=== PATIENT | female | born 1995 | race Caucasian/White ===

== ENCOUNTER 2019-09-10 00:03 | Emergency (ER) | payer BC ==
--- NOTE | 2019-09-10 00:25 | ED ---
HPI Cardiac - HPI Summary HPI Summary: Patient is a 24 y/o F w/ Hx of spontaneous pneumothorax w/ chest tube placement and VATS procedure presents to [facility] with complaints of right-sided, sharp chest pain and SOB that onset suddenly a few hours ago in the evening of . She states previous pneumothorax occurred in approximately 2014 and VATS procedure was done in [place] at [facility]. CP radiates into her back and is at the same area of her previous pneumothorax. Patient is on 4 L o2 w/ o2 saturation of 96% in room. She states that her breathing is "okay" currently. PMHx of bone CA and left leg amputation noted. She denies daily medications and known drug allergies. Patient has been off of control medication for a few years. She denies tobacco and substance usage but endorses some occasional alcohol consumption. No FMHx of pneumothorax noted. Home medications and allergies are reviewed. - History of Current Complaint Chief Complaint: EDChestWallPain Stated Complaint: SOB PER PT Time Seen by Provider: 09/10/19 00:18 Hx Obtained From: Patient Onset/Duration: Started Hours Ago, Still Present Timing: Lasting Hours Current Severity: Severe Pain Intensity: 10 Pain Scale Used: 0-10 Numeric Chest Pain Location: Right Anterior Chest Pain Radiates: Yes Chest Pain Radiates To:: Back Character: Sharp/Stabbing Associated Signs and Symptoms: Positive: Chest Pain, Shortness of Breath - Allergy/Home Medications Allergies/Adverse Reactions: Allergies Allergy/AdvReac Type Severity Reaction Status Date / Time No Known Allergies Allergy Verified 09/10/19 00:07 PMH/Surg Hx/FS Hx/Imm Hx Respiratory History: Reports: Other Respiratory Problems/Disorders - pneumothorax Sensory History: Denies: Hx Legally Blind, Hx Deafness Opthamlomology History: Denies: Hx Legally Blind EENT History: Denies: Hx Deafness - Cancer History Cancer Type, Location and Year: bone CA Infectious Disease History: No Infectious Disease History: Denies: Traveled Outside the [place] in Last 30 Days - Family History Known Family History: Negative: Respiratory Disease - no FMHx of pneumothorax - Social History Alcohol Use: Occasionally Substance Use Type: Reports: None Smoking Status (MU): Never Smoked Tobacco Review of Systems Positive: Chest Pain Positive: Shortness Of Breath All Other Systems Reviewed And Are Negative: Yes Physical Exam - Summary Physical Exam Summary: General: Well-developed, Thin female. Moderate respiratory distress. HEENT: Normocephalic, Atraumatic. Eyes: Conjuctiva normal, PERRL. Oropharynx: Clear, mucous membranes moist, (-) exudates. Neck: Soft, FROM, (-) lymphadenopathy, (-) thyromegaly, (-) JVD. Cardiovascular: Normal sinus rhythm, (-) murmur. Lungs: Decreased breath sounds on at the right lung base (-) wheezes, (-) rales , (-) rhonchi. Abdomen: Soft, non-tender, non-distended, (-) organomegaly, normal bowel sounds. Back: (-) CVA tenderness Extremities: No edema. Skin: Warm, dry, (-) rash. Neuro: Alert and oriented x3, no focal deficits. Psychiatric: Mildly anxious appearing. Triage Information Reviewed: Yes Vital Signs On Initial Exam: Initial Vitals Temp Pulse Resp BP Pulse Ox 98.0 F 122 20 105/66 91 09/10/19 00:07 09/10/19 00:07 09/10/19 00:07 09/10/19 00:07 09/10/19 00:07 Vital Signs Reviewed: Yes Procedures - Sedation Patient Received Moderate/Deep Sedation with Procedure: Yes Are You The Provider Who Administered The Sedation: Yes Name of Provider Whom Sedated Patient: Talia Mcfarlane - Procedural Sedation/Analgesia Sedation Course: Emergency Airway Equipment Available, Informed Consent Obtained , Time Out Completed, End-tidal Capnography Utilized Adverse Reactions Experienced by Patient: None Mallampati Classification: Class I ASA Classification: Class I: Normal/Healthy Pre-Procedural Heart: S1 and S2 Pre-Procedural Lungs: Other - decreased breath sounds on the right Pre-Procedural Lung Comment: decreased breath sounds on the right Comment/Plan of Care: Conscious sedation for a chest tube placement, place confirmed by CXR. Patient transferred. Provider Procedure Attestation: With My Signature Below, I Attest to have Personally Reviewed and Agree with the Pre-Sedation History and Pre-Service Assessment Update Cleared for Moderate Sedation: Yes Pre-Procedural Diagnosis: Right pneumothorax Post-Procedural Diagnosis: Right pneumothorax Procedure: Chest tube Estimated Blood Loss: None Specimen(s): None Findings: None Implants/Tubes/Drains Placed: Other Implants/Tubes/Drains Placed Comment: Chest tube Diagnostics - Vital Signs Vital Signs Temp Pulse Resp BP Pulse Ox 09/10/19 00:07 98.0 F 122 20 105/66 91 - Laboratory Result Diagrams: 09/10/19 00:24 09/10/19 00:24 Lab Statement: Any lab studies that have been ordered have been reviewed, and results considered in the medical decision making process. - Radiology CXR Radiology Interpretation Completed By: ED Physician Summary of Radiographic Findings: Large pneumothorax of right lung, no obvious tracheal deviation, pending official report. 2nd CXR Radiology Interpretation Completed By: ED Physician Summary of Radiographic Findings: Large pneumothorax of right lung, no obvious tracheal deviation, pending official report. POST CHEST TUBE CXR Radiology Interpretation Completed By: ED Physician Summary of Radiographic Findings: CXR showed lobe is mostly re-expanded, some area at the top of the right lung that is not expanded. Pending official report. - EKG 0015 Cardiac Rate: Tachycardia - rate of 115 BPM. EKG Rhythm: Sinus Tachycardia Summary of EKG Findings: EKG showed sinus tachycardia with rate of 115 BPM, no STEMI. ED physician have reviewed and interpreted by ED physician. Re-Evaluation - Re-Evaluation First Eval Re-Evaluation Time: 00:39 Comment: Transfer center was reached, consult was held with cardiothoracic surgeon, Dr. Theodore Bass, from [facility] in [place]. Requested consult with in-house [facility] surgeon for chest tube placement before transfer. Patient's case was discussed with Dr. Joseline Santiago, emergency medicine physician at [facility], who accepts the patient for ED to ED transfer. Second Eval Re-Evaluation Time: 00:49 Comment: Repeated CXR was ordered for better positioning of patient to check for tracheal deviation. Disposition - Course Course Of Treatment: 24 y/o F presents with right chest discomfort and SOB. Hx of pneumothorax with chest tube and VAT procedure at [facility]. Decreased breath sounds on exam. Patient is on 4 L NC, pulse ox 96%. No distended neck veins noted. CXR shows significant pneumothorax of right, trachea is not deviated. Surgery consulted for chest tube placement. Conscious sedation provided per note. 20 Maori chest tube placed. For conscious sedation, she received Versed 5 mg and Fentanyl 100 mcg IV. Tolerated procedure well. Good air expansion on CXR. Patient transferred [facility] ED. Consult was held with cardiothoracic surgeon, Dr. Theodore Bass, from [facility] in [place]. Patient's case was discussed with Dr. Joseline Santiago, emergency medicine physician at [facility], who accepts the patient for ED to ED transfer. Vital signs are stable. Patient was transferred to [facility] in [place]. - Diagnoses Provider Diagnoses: Pneumothorax, right - Physician Notifications Discussed Care Of Patient With: Theodore Bass MD Time Discussed With Above Provider: 00:39 Instructed by Provider To: Other - 0039 - Transfer center was reached, consult was held with cardiothoracic surgeon, Dr. Theodore Bass, from [facility] in [place]. Requested consult with in-house [facility] surgeon for chest tube placement before transfer. Patient's case was discussed with Dr. Joseline Santiago , emergency medicine physician at [facility], who accepts the patient for ED to ED transfer. 0050 - Patient's case was discussed with Dr. Ford, surgery. Dr. Ford will come to ED to place chest tube. 0121 - Dr. Ford in ED, she requests conscious sedation for the patient. Dr. Ford placed chest tube. - Critical Care Time Critical Care Time: 75-104 min - 90 minutes CCT Discharge ED - Sign-Out/Discharge Documenting (check all that apply): Patient Departure - transfer - Discharge Plan Condition: Fair Disposition: TRANS HIGHER LVL OF CARE FAC Patient Education Materials: Moderate Sedation (ED) Referrals: No Primary Care Phys,NOPCP [Primary Care Provider] - - Billing Disposition and Condition Condition: FAIR Disposition: Trans Higher Lvl of Care Fac - Attestation Statements Document Initiated by Scribe: Yes Documenting Scribe: DAISY YANCEY Provider For Whom Oziel is Documenting (Include Credential): TALIA MCFARLANE MD Scribe Attestation: I, DAISY YANCEY, scribed for TALIA MCFARLANE MD on 09/10/19 at 0223. Scribe Documentation Reviewed: Yes Provider Attestation: The documentation as recorded by the DAISY nelson accurately reflects the service I personally performed and the decisions made by me, TALIA MCFARLANE MD Status of Scribe Document: Viewed
[2019-09-10 00:33] LABS: ABS Basophils 0.1 10^3/ul (0-0.2); ABS Eosinophils 0.1 10^3/ul (0-0.6); ABS Lymphocytes 2.8 10^3/ul (1.0-4.8); ABS Monocytes 1.4 10^3/ul (0-0.8); ABS Neutrophils 18.5 10^3/ul (1.5-7.7); Eosinophil % 0.5 %; Hematocrit 41 % (35-47); Hemoglobin 14.1 g/dL (12.0-16.0); Lymphocyte % 12.2 %; Mean Corpuscular HGB Conc 35 g/dL (31-36); Mean Corpuscular Hemoglobin 34 pg (27-31); Mean Corpuscular Volume 98 fL (80-97); Mean Platelet Volume 7.7 fL (7.4-10.4); Platelet Count 281 10^3/uL (150-450); Red Blood Count 4.11 10^6 /uL (3.70-4.87); Red Cell Distribution Width 13 % (10-15); White Blood Count 22.8 10^3/uL (3.5-10.8)
[2019-09-10 00:53] LABS: ALT 6 U/L (7-52); AST 16 U/L (13-39); Albumin 4.7 g/dL (3.2-5.2); Albumin/Globulin Ratio 2.2 (1-3); Alkaline Phosphatase 57 U/L (34-104); Anion Gap 8 mmol/L (2-11); BUN/Creatinine Ratio 21.6 (8-20); Blood Urea Nitrogen 16 mg/dL (6-24); CO2 Carbon Dioxide 25 mmol/L (22-32); Calcium 9.4 mg/dL (8.6-10.3); Chloride 107 mmol/L (101-111); EGFR African American 118.7 (>60); EGFR Non-African American 98.1 (>60); Globulin 2.1 g/dL (2-4); Glucose 129 mg/dL (70-100); Potassium 3.1 mmol/L (3.5-5.0); Sodium 140 mmol/L (135-145); Total Protein 6.8 g/dL (6.4-8.9)
[2019-09-10] MEDS ORDERED: Morphine 4 MG/ML VIAL (1 ml) 4 MG/ML VIAL IV ONE (00:53)
[2019-09-10] MEDS ORDERED: Ondansetron INJ* 2 MG/ML VIAL IV ONE (00:53)
[2019-09-10 00:59] LABS: HCG Pregnancy < 0.60 mIU/mL
[2019-09-10] MEDS: NS 0.9% 1000 ML** 1,000 ML IV ONE ×2 (01:05→02:20)
[2019-09-10] MEDS ORDERED: Midazolam* 1 MG/ML 5 ML VIAL (5 MG) IV SLOW PU ONE (01:22)
[2019-09-10] MEDS ORDERED: fentaNYL* 50 MCG/ML 2 ML VIAL (100 MCG VIAL) IV SLOW PU ONE (01:22)
[2019-09-10] MEDS ORDERED: Naloxone* 0.4 MG/ML 10 ML VIAL ONE (01:30)
[2019-09-10] MEDS ORDERED: Flumazenil* 0.1 MG/ML 5 ML MDV ONE (01:31)
[2019-09-10] MEDS ORDERED: Lidocaine 1% INJ* 10 MG/ML 30 ML SDV ONE (01:35)
[2019-09-10] MEDS ORDERED: Lidocaine 1% INJ* 10 MG/ML 30 ML SDV INJ ONE (02:22)
[2019-09-10 02:37] VITALS: BP 91/69
--- NOTE | 2019-09-10 06:12 | CONS ---
CONSULTATION REPORT: DATE OF CONSULT: 09/10/19 SERVICE: General Surgery. ATTENDING SURGEON: Josefina Ford MD REASON FOR CONSULT: Right pneumothorax. HISTORY OF PRESENT ILLNESS: Ms. Cordoba is a very pleasant 24-year-old female with a history of lung cancer, status post left lower extremity amputation and history of prior right-sided pneumothorax, status post VATS procedure approximately 6 years ago when she was a teenager. She presented to the emergency room with complaints of chest wall pain since approximately 10 o' clock this evening. She was found on chest x-ray to have a complete right pneumothorax, therefore requiring a chest tube. She has no other complaints other than some shortness of breath and chest pain. PAST MEDICAL HISTORY: As above. PAST SURGICAL HISTORY: Left lower extremity amputation and right VATS. MEDICATIONS: None. ALLERGIES: No known drug allergies. FAMILY HISTORY: Noncontributory. SOCIAL HISTORY: The patient is a nonsmoker. PHYSICAL EXAM: Vital Signs: Temperature is 98, heart rate 111, respiratory rate is 23, O2 sat 96% O2 on room air, blood pressure is 94/55. General: She is a very young woman, lying in bed with a nasal cannula and in no apparent distress. HEENT is normocephalic, atraumatic. Cardiovascular: Increased rate, regular rhythm. Respiratory is clear to auscultation on the left, on the right , no breath sounds present. IMAGING STUDIES: Chest x-ray reviewed showed a complete collapse of her right lung. ASSESSMENT AND PLAN: Ms. Cordoba is a 24-year-old female with history of a right pneumothorax, status post right VATS 6 years ago, who presents with recurrent right pneumothorax. She is requiring a placement of chest tube. Informed consent was placed with the chest tube, please see procedure report. The patient gave informed consent. She understood that the risks include, but are not limited to bleeding, infection, injury to nearby structures. She agreed and wished to proceed. The chest tube will be placed prior to her being transferred to [facility] for high level care with the thoracic surgeon. [id number]/[facility] #: [id number] MTDD
--- NOTE | 2019-09-10 07:41 | PRO ---
DATE OF PROCEDURE: 09/10/19 - EMERGENCY DEPT SERVICE: General surgery. ATTENDING SURGEON: Josefina Ford MD PRE-PROCEDURE DIAGNOSIS: Right pneumothorax. POST-PROCEDURE DIAGNOSIS: Right pneumothorax. PROCEDURE: Placement of 20-Armenian right chest tube. INDICATIONS FOR PROCEDURE: Ms. Cordoba is a very pleasant 24-year-old female with a history of right pneumothorax approximately 6 years ago when she was a teenager, status post VATS procedure at [facility]. She presented to the emergency room with acute onset of chest wall pain and she was found to have complete collapse of her right lung, therefore she required placement of a right chest tube prior to being transferred to [facility] for high level care with the thoracic surgeon. She gave informed consent for placement of the right chest tube. She understood the risks include, but were not limited to bleeding, infection, injury to nearby structures. She understood the alternatives and benefits and wished to proceed. DESCRIPTION OF PROCEDURE: The patient was placed on the stretcher to supine position with her right arm elevated above her head. Conscious sedation was performed by Dr. Mcfarlane from the emergency room. After administering conscious sedation, her right chest wall was prepped and draped in normal sterile fashion. She had an incision at approximately the fourth intercostal space in the mid axillary line from her prior chest tube and VATS procedure. The decision was made to go through the same incision. Local anesthesia consisting of 1% lidocaine was infiltrated over the incision and the subcutaneous and intercostal muscle overlying the rib. After infiltrating 1% lidocaine, a 10- blade scalpel was used to make incision to the skin and subcutaneous tissue. There was a small amount of scar tissue that was also divided. After this was done, a Darling clamp was used to bluntly enter the intercostal space over the rib. This was done with some difficulty given there was prior scar tissue in this area before. Once the intercostal space was entered bluntly and the pleural cavity was entered, there was a large evacuation of air that could be heard and the lung was palpated through the intercostal space. After this, a 20 -Armenian tube was advanced through the tract and into the thoracic cavity, directed towards the apex. The chest tube was then connected to the Pleur-evac and there was and air leak noted in the water seal chamber as well as condensation in the chest tube. The chest tube was connected to suction. After this was done, the incision was closed using 0-silk sutures and secured to the chest wall using silk suture. Sterile dressing was then placed and postprocedure chest x-ray was performed showing that the right lung had largely expanded, however, there was a small residual apical pneumothorax that was still present. The chest tube was directed towards the mediastinum. The presence of the small residual pneumothorax was not surprising given that she had had a prior VATS procedure. The patient tolerated the procedure well without any complications and she is awaiting transport to [facility]. [id number]/[facility] #: [id number] NEELA
== END 2019-09-10 02:36 | disposition short-term general hospital (02) ==
LOC: ED 00:03
DX: J93.9 Pneumothorax, unspecified (principal); Z85.830 Personal history of malignant neoplasm of bone; Z89.612 Acquired absence of left leg above knee
CPT/HCPCS: 36415; 71045; 80053; 83605; 84484; 84702; 85025; 85379; 93005; 96365; 96375; 99285; J2250; J2270; J2310; J2405; J3010